=== PATIENT | male | born 1990 | race African-American/Black ===

== ENCOUNTER 2019-07-13 14:44 | Emergency (ER) | payer MEDICAID ==
[~2019-07-13] VITALS: Ht 175.3 cm; Wt 68.0 kg
[2019-07-13 16:17] VITALS: BP 129/71
== END 2019-07-13 16:19 | disposition home or self-care (01) ==
LOC: ER 14:44
DX: J02.9 Acute pharyngitis, unspecified (principal); L50.0 Allergic urticaria; Z88.2 Allergy status to sulfonamides
CPT/HCPCS: 87070; 87430; 99283